=== PATIENT | male | born 1985 | race Caucasian/White ===

== ENCOUNTER 2019-01-09 14:07 | Outpatient (CLI) | payer BC ==
[2019-01-11 13:52] LABS: HIV AG/AB 4TH GEN NON-REACTIVE (NON-REACTIVE)
[2019-01-11 15:56] LABS: HEPATITIS C ANTIBODY NON-REACTIVE (NON-REACTIVE)
[2019-01-12 08:11] LABS: HEPATITIS B SURFACE AB QN IMM >1000 mIU/mL (> OR = 10)
== END 2019-01-09 14:08 | disposition home or self-care (01) ==
LOC: LAB 14:07
PROVIDERS: ATTEND Internal Medicine
DX: T75.89XA Other specified effects of external causes, initial encounter (principal)
CPT/HCPCS: 36415; 86317; 86803; 87389

== ENCOUNTER 2019-01-09 14:27 | Emergency (ER) | payer OTHER, BC ==
[2019-01-09 14:37] VITALS: BP 150/91
--- NOTE | 2019-01-09 14:57 | ED Physician Documentation ---
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 He was placing an IV in a pt and when retracting the needle it scratched his finger. It did not break skin and he had no bleeding. He is fully immunized. Review of Systems Skin: reports: Other (excoriation of finger) Immunocompromised: denies: Immunocompromised PD PAST MEDICAL HISTORY - Past Medical History Past Medical History: No - Past Surgical History Past Surgical History: No - Present Medications Home Medications: Ambulatory Orders Medication Instructions Recorded Confirmed No Known Home Medications 01/09/19 01/09/19 - Allergies Allergies/Adverse Reactions: Allergies Allergy/AdvReac Type Severity Reaction Status Date / Time No Known Drug Allergies Allergy Verified 01/09/19 14:36 - Social History Does the pt smoke?: No Smoking Status: Never smoker Does the pt drink ETOH?: No Does the pt have substance abuse?: No - Immunizations Immunizations are current?: Yes - POLST Patient has POLST: No PD ED PE NORMAL - Vitals Vital signs reviewed: Yes - General General: Alert and oriented X 3 - HEENT HEENT: Atraumatic - Extremities Extremities: Other (L hand index finger has a superficial excoriation without bleeding, it does not obviously have appeared to violate the dermis) - Neuro Neuro: Alert and oriented X 3 - Psych Psych: Normal mood, Normal affect Results - Vitals Vitals: Oxygen O2 Source Room air PD MEDICAL DECISION MAKING - ED course ED course: Pt presents after being scratched by a needle while on the job, it does not obviously have appeared to break skin, but it was a contaminated and hollow bore needle. The source patient is HIV negative today, and low risk for HIV, after discussion of HIV PEP patient has decided to defer this at this time, which I agree with given the very low risk of the exposure. Pt is fully immunized, and will follow up with occupational health for further testing. I did discuss the risk of hepatitis and precautions to take until the other labs and hepatitis serologies result. Departure - Departure Disposition: 01 Home, Self Care Clinical Impression: Needlestick injury of finger Condition: Good Instructions: ED Body Fluid Exp HC Worker Comments: You were seen today for a needlestick. This appears to be a pretty low risk exposure, and it does not appear that we need to start postexposure prophylaxis for HIV. Please follow-up with occupational health for further results, and repeat blood draws as needed. If you are developing any concerning symptoms such as jaundice, fever, redness or signs of infection in the area of the exposure return to the emergency department. Discharge Date/Time: 01/09/19 15:30
== END 2019-01-09 15:30 | disposition home or self-care (01) ==
LOC: ED 14:27
DX: S69.80XA Other specified injuries of unspecified wrist, hand and finger(s), initial encounter (principal); W46.1XXA Contact with contaminated hypodermic needle, initial encounter; Y93.F9 Activity, other caregiving; Y99.0 Civilian activity done for income or pay
CPT/HCPCS: 99282

== ENCOUNTER 2019-05-27 18:16 | Outpatient (CLI) | payer BC | END 2019-05-27 18:17 | disposition home or self-care (01) | LOC: COV 18:16 | PROVIDERS: ATTEND Family Medicine | DX: R05 Cough (principal) ==

== ENCOUNTER 2021-02-18 22:26 | Emergency (ER) | payer BC ==
[2021-02-18] MEDS ORDERED: methocarbamoL 500 MG TABLET PO STA (23:33)
[2021-02-18] MEDS ORDERED: LIDOCAINE PATCH 5% TOP STA (23:34)
--- NOTE | 2021-02-18 23:36 | ED Physician Documentation ---
PD HPI BACK PAIN - Stated complaint Stated Complaint: BACK PX - Chief complaint Chief Complaint: Back Pain - Additional information Additional information: Patient is a 35-year-old male presenting with chief complaint back pain. Endorses for mid back pain ongoing x1 day. No known injury. Believes he may have "twisted wrong". Pain ranges between 4 and 6. Has taken acetaminophen and Motrin with minimal symptomatic management. Denies any fever, chills, saddle paresthesias, lower extremity numbness, weakness, shooting pains, IV drug abuse. Review of Systems Ten Systems: 10 systems reviewed and negative Constitutional: denies: Fever Musculoskeletal: reports: Back pain Neurologic: denies: Generalized weakness, Focal weakness, Numbness PD PAST MEDICAL HISTORY - Past Medical History Past Medical History: No - Past Surgical History Past Surgical History: No - Present Medications Home Medications: Ambulatory Orders Medication Instructions Recorded Confirmed No Known Home Medications 01/09/19 02/18/21 - Allergies Allergies/Adverse Reactions: Allergies Allergy/AdvReac Type Severity Reaction Status Date / Time No Known Drug Allergies Allergy Verified 02/18/21 22:32 - Social History Does the pt smoke?: No Smoking Status: Never smoker Does the pt drink ETOH?: No Does the pt have substance abuse?: No - Immunizations Immunizations are current?: Yes - POLST Patient has POLST: No PD ED PE NORMAL - Vitals Vital signs reviewed: Yes - General General: Alert and oriented X 3 - HEENT HEENT: Atraumatic - Respiratory Respiratory: No respiratory distress - Back Back: No CVA TTP, No spinal TTP Results - Vitals Vitals: Vital Signs - 24 hr 02/18/21 22:30 Temperature 37 C Heart Rate 71 Respiratory 16 Rate Blood Pressure 150/103 H O2 Saturation 96 Oxygen O2 Source Room air PD MEDICAL DECISION MAKING - ED course Complexity details: d/w patient ED course: Patient is otherwise healthy 35-year-old male presenting with atraumatic back pain. Afebrile, hemodynamically stable on arrival to the emergency department. No focal tenderness to the spine and no history of trauma. Patient denied any red flags that would be concerning for spinal cord compression. Given Lidoderm patch and Robaxin in the emergency department. Discharged on combination of nonsteroidal anti-inflammatory medications, acetaminophen, Lidoderm and Robaxin for use as needed. Instructed and cautioned patient in the use of these medications. Encouraged follow-up with primary care or return to the emergency department for new or worsening symptoms. Departure - Departure Disposition: 01 Home, Self Care Clinical Impression: Back pain Instructions: IBUPROFEN (Adult), ED Low Back Pain Injury
[2021-02-18 23:47] VITALS: BP 146/69
== END 2021-02-18 23:47 | disposition home or self-care (01) ==
LOC: ED 22:26
DX: M54.6 Pain in thoracic spine (principal)
CPT/HCPCS: 99283; 99284; A9270